=== PATIENT | female | born 1975 | race Caucasian/White ===

== ENCOUNTER 2017-01-13 07:50 | Inpatient (IN) | payer SELFPAY ==
[2017-01-13] MEDS ORDERED: Misoprostol TAB* 200 MCG VAGINAL ONE (08:45)
[2017-01-13] MEDS: Misoprostol TAB* 200 MCG PO SCH ×3 (09:16→15:45)
[2017-01-13] MEDS ORDERED: Buffered Lidocaine 0.9% SYRIN* 5 ML/SYR SYRINGE ONE (10:27)
[2017-01-13 11:45] LABS: Hematocrit 37 % (35-47); Hemoglobin 12.9 g/dl (12.0-16.0); Mean Corpuscular HGB Conc 35 g/dl (31-36); Mean Corpuscular Hemoglobin 31 pg (27-31); Mean Corpuscular Volume 88 fL (80-97); Mean Platelet Volume 9 um3 (7.4-10.4); Red Blood Count 4.22 10^6/ul (4.0-5.4); Red Cell Distribution Width 14 % (10.5-15); White Blood Count 6.8 10^3/ul (3.5-10.8)
[2017-01-13] MEDS ORDERED: Oxytocin in LR* 20 UNITS/1,000 ML BAG IVPB ONE (17:22)
[2017-01-13] MEDS ORDERED: Acetaminophen TAB* 325 MG PO PRN (17:26)
[2017-01-13] MEDS ORDERED: Dibucaine 1% 28.35 GM TUBE PR PRN (17:26)
[2017-01-13] MEDS ORDERED: Glycerin ADULT SUPP PR PRN (17:26)
[2017-01-13] MEDS ORDERED: Witch Hazel PAD* JAR TOPICAL PRN (17:26)
[2017-01-13] MEDS ORDERED: RHO D Immune Globulin (HUMAN)* 300 MCG = 1,500 I.U. INJ IM ONE (17:26)
[2017-01-13] MEDS ORDERED: Ibuprofen TAB* 600 MG PO PRN (17:26)
[2017-01-13] MEDS ORDERED: Simethicone TAB* 80 MG TAB.CHEW PO SCH (17:30)
[2017-01-13] MEDS ORDERED: Oxytocin in LR* 20 UNITS/1,000 ML BAG IVPB SCH (18:00)
[2017-01-13] MEDS ORDERED: ceFAZolin 1 GM VIAL(*) ONE (18:38)
[2017-01-13] MEDS: ceFAZolin 1 GM VIAL(*) 1 GM in NS 0.9% 50 ML* 50 ML IVPB SCH (19:33)
[2017-01-13] MEDS ORDERED: Ammonia Inhalant* 1 EA AMP ONE (20:55)
[2017-01-13] MEDS ORDERED: Docusate CAP* 100 MG PO SCH (21:00)
[2017-01-14] MEDS: ceFAZolin 1 GM VIAL(*) 1 GM in NS 0.9% 50 ML* 50 ML IVPB SCH (03:27)
[2017-01-14 07:09] LABS: Hematocrit 30 % (35-47); Hemoglobin 10.7 g/dl (12.0-16.0); Mean Corpuscular HGB Conc 35 g/dl (31-36); Mean Corpuscular Hemoglobin 31 pg (27-31); Mean Corpuscular Volume 87 fL (80-97); Mean Platelet Volume 8 um3 (7.4-10.4); Red Blood Count 3.48 10^6/ul (4.0-5.4); Red Cell Distribution Width 14 % (10.5-15); White Blood Count 6.3 10^3/ul (3.5-10.8)
[2017-01-14] MEDS ORDERED: Ferrous Gluconate TAB* 324 MG TAB PO SCH (09:00)
[2017-01-14 10:05] VITALS: BP 100/72
== END 2017-01-14 10:30 | disposition home or self-care (01) | DRG 770 ==
LOC: MCHOBOUT 07:50 → MCHOB 08:16
PROVIDERS: ADMIT Obstetrics & Gynecology; ATTEND Obstetrics & Gynecology
PROC: 10D17ZZ Extraction of Products of Conception, Retained, Via Natural or Artificial Opening (ICD-10-PCS; principal; 2017-01-13)
DX: O02.1 Missed abortion (principal); Z3A.15 15 weeks gestation of pregnancy
CPT/HCPCS: 36415; 85025; 86850; 86900; 86901; 88233; 88291; 88305; 88307; A9270-GY; J0690; J2790